=== PATIENT | female | born 1990 | race Caucasian/White ===

== ENCOUNTER 2016-07-09 02:50 | Emergency (ER) | payer OTHER ==
[2016-07-09 03:09] VITALS: BP 124/71; PULSE 76; TEMP 98.2; BMI 32.2
[2016-07-09] MEDS ORDERED: FAMOTIDINE 20 MG/50 ML IVPB 50 ML IVPB ONE ×2 (03:18→04:00)
[2016-07-09 03:24] LABS: BASOPHIL 0.9 % (0-2.0); MCH 28.4 pg (25.7-33.7); MCHC 32.4 g/dl (32.0-36.0); MEAN CELL VOLUME 87.6 fl (80-96); MEAN PLT VOLUME 7.6 fl (7.5-11.1); NEUTROPHILS 69.7 % (42.8-82.8); PLATELET COUNT 380 K/MM3 (134-434); RDW 12.6 % (11.6-15.6); WHITE BLOOD COUNT 13.2 K/mm3 (4.0-10.0)
--- NOTE | 2016-07-09 03:25 | PDOC ---
History of Present Illness - General History Source: Patient Exam Limitations: No Limitations - History of Present Illness Initial Comments: 07/09/16 03:36 The patient is a 25 year old female with no significant past medical history who presents to the ED with diffuse lower abdominal pain 2 hours prior to arrival. Patient reports she was in her usual state of health prior to going to bed last night. She denies any changes to appetite and bowel movements. Patient reports around 1am she had a sudden onset of abdominal pain that she describes as collicky in nature and localized in the lower quadrants, more prominent on the left. Patient denies nausea, vomiting, and diarrhea. She states her pain is consistent to when she was diagnosed with cholecystitis. The patient denies fever, chills, cough, SOB, chest pain, and palpitations. The patient denies dysuria, hematuria, urgency, and frequency. Allergies: NKDA Social History: No alcohol, tobacco, or drug use reported. Past Surgical History: cholecystectomy PCP: Dr. Annie Berger <Shea Medina - Last Filed: 07/09/16 03:36> - General History Source: Patient <DouglasSeven olivarez - Last Filed: 07/09/16 05:43> - General Chief Complaint: Pain, Acute Stated Complaint: ABD PAIN Time Seen by Provider: 07/09/16 03:25 Past History <Shea Medina - Last Filed: 07/09/16 03:36> - Past Medical History Anemia: No Asthma: No Cancer: No Cardiac Disorders: No CVA: No COPD: No CHF: No Dementia: No Diabetes: No GI Disorders: No Disorders: No HTN: No Hypercholesterolemia: No Liver Disease: No Seizures: No Thyroid Disease: No - Surgical History Abdominal Surgery: No Appendectomy: No Cardiac Surgery: No Cholecystectomy: No Lung Surgery: No Neurologic Surgery: No Orthopedic Surgery: No - Psycho/Social/Smoking Cessation Hx Suicidal Ideation: No Smoking Status: No Smoking History: Never smoked Have you smoked in the past 12 months: No Number of Cigarettes Smoked Daily: 0 Information on smoking cessation initiated: No Hx Alcohol Use: No Drug/Substance Use Hx: No Hx Substance Use Treatment: No <Seven Matias - Last Filed: 07/09/16 05:43> - Past Medical History Allergies/Adverse Reactions: Allergies Allergy/AdvReac Type Severity Reaction Status Date / Time No Known Drug Allergies Allergy Verified 07/09/16 03:08 Home Medications: Ambulatory Orders Ferrous Gluconate [Iron] 256 mg PO DAILY 06/27/15 Vit/Iron Fumarate/FA [ Tablet] 1 each PO DAILY 06/27/15 Ibuprofen [Motrin] 600 mg PO TID #30 tablet 07/09/16 Sulfamethoxazole/Trimethoprim [Bactrim *Ds*] 1 tab PO BID #14 tablet 07/09/16 Review of Systems - Review of Systems Able to Perform ROS?: Yes Comments:: 07/09/16 03:36 CONSTITUTIONAL: Absent: fever, no chills, no fatigue EYES: Absent: visual changes ENT: Absent: ear pain, no sore throat CARDIOVASCULAR: Absent: chest pain, no palpitations RESPIRATORY: Absent: cough, no SOB GI: +diffuse lower abdominal pain Absent: no nausea, no vomiting, no constipation, no diarrhea GENITOURINARY: Absent: dysuria, no frequency, no hematuria MUSKULOSKELETAL: Absent: back pain, no arthralgia, no myalgia SKIN: Absent: rash NEURO: Absent: headache <Shea Medina - Last Filed: 07/09/16 03:36> *Physical Exam - Vital Signs Last Vital Signs Temp Pulse Resp BP Pulse Ox 98.2 F 76 20 124/71 99 07/09/16 03:08 07/09/16 03:08 07/09/16 03:08 07/09/16 03:08 07/09/16 03:08 - Physical Exam Comments: 07/09/16 03:37 GENERAL: Well-appearing, well-nourished. Moderate distress. HEENT: Normocephalic, atraumatic. PERRL, EOM intact. CARDIOVASCULAR: Normal S1, S2. Regular rate and rhythm. PULMONARY: Clear to auscultation bilaterally. ABDOMEN: Soft, non-distended, Mildly tenderness on palpation throughout the entire abdomen, more on lower quadrants. No rebound or guarding. EXTREMITIES: Normal ROM in all four extremities. No gross deformities. SKIN: Warm, dry. No rash NEUROLOGICAL: No focal neurological deficits. <Shea Medina - Last Filed: 07/09/16 03:36> - Vital Signs Last Vital Signs Temp Pulse Resp BP Pulse Ox 98.2 F 76 20 124/71 99 07/09/16 03:08 07/09/16 03:08 07/09/16 03:08 07/09/16 03:08 07/09/16 03:08 <Seven Matias - Last Filed: 07/09/16 05:43> ED Treatment Course - LABORATORY CBC & Chemistry Diagram: 07/09/16 03:07 07/09/16 03:07 - ADDITIONAL ORDERS Additional order review: Laboratory Results 07/09/16 03:12 Urine Color Yellow Urine Appearance Slcloudy Urine pH 6.0 Ur Specific Pruden 1.026 Urine Protein Negative Urine Glucose (UA) Negative Urine Ketones Negative Urine Blood 2+ H Urine Nitrite Negative Urine Bilirubin Negative Urine Urobilinogen Negative Ur Leukocyte Esterase 1+ H 07/09/16 03:07 RBC 4.69 MCV 87.6 MCHC 32.4 RDW 12.6 D MPV 7.6 D Neutrophils % 69.7 Lymphocytes % 21.7 D Monocytes % 5.7 Eosinophils % 2.0 Basophils % 0.9 <Shea Medina - Last Filed: 07/09/16 03:36> - LABORATORY CBC & Chemistry Diagram: 07/09/16 03:07 07/09/16 03:07 <Seven Matias - Last Filed: 07/09/16 05:43> Medical Decision Making - Medical Decision Making 07/09/16 05:43 Dr. Matias: The scribe's documentation has been prepared under my direction and personally reviewed by me in its entirery. I confirm that the note above accurately reflects all work, treatment, procedures, and medical decision making performed by me. <Seven Matias - Last Filed: 07/09/16 05:43> *DC/Admit/Observation/Transfer - Attestations Scribe Attestion: 07/09/16 03:37 Documentation prepared by Shea Medina, acting as certified medical aide for Seven Matias MD <Shea Medina - Last Filed: 07/09/16 03:36> - Discharge Dispostion Admit: No <Seven Matias - Last Filed: 07/09/16 05:43> Diagnosis at time of Disposition: Abdominal pain Qualifiers: Abdominal location: lower abdomen, unspecified Qualified Code(s): R10.30 - Lower abdominal pain, unspecified UTI (urinary tract infection) Qualifiers: Urinary tract infection type: site unspecified Hematuria presence: without hematuria Qualified Code(s): N39.0 - Urinary tract infection, site not specified - Discharge Dispostion Disposition: HOME Condition at time of disposition: Stable - Referrals Referrals: Annie Berger [Primary Care Provider] - - Patient Instructions Printed Discharge Instructions: DI for Urinary Tract Infection (UTI), DI for Abdominal Pain-Adult
[2016-07-09 03:27] LABS: URINE APPEARANCE SLCLOUDY; URINE BILIRUBIN NEGATIVE (NEGATIVE); URINE COLOR YELLOW; URINE GLUCOSE (UA) NEGATIVE (NEGATIVE); URINE KETONE NEGATIVE (NEGATIVE); URINE NITRITE NEGATIVE (NEGATIVE); URINE PROTEIN NEGATIVE (NEGATIVE); URINE UROBILINOGEN NEGATIVE E.U./dl (0.2-1.0)
[2016-07-09 03:35] LABS: URINE BLOOD 2+ (NEGATIVE); URINE LEUK ESTERASE 1+ (NEGATIVE)
[2016-07-09 03:37] LABS: URINE BACTERIA MANY /hpf (NONE SEEN); URINE RBC 7 /hpf (0-3); URINE WBC 15 /hpf (3-5)
[2016-07-09 03:47] LABS: ALBUMIN 4.1 g/dl (3.4-5.0); ALK PHOS 74 U/L (45-117); ANION GAP 11 (8-16); BILIRUBIN,TOTAL 0.2 mg/dL (0.2-1.0); CALCIUM 8.5 mg/dL (8.5-10.1); CO2 27 mmol/L (21-32); CREATININE 0.6 mg/dL (0.55-1.02); GLUCOSE,RANDOM 113 mg/dL (74-106); SGPT/ALT 23 U/L (12-78); TOT PROT 7.6 g/dl (6.4-8.2)
[2016-07-09] MEDS ORDERED: KETOROLAC TROMETHAMINE 30 MG/1 ML VIAL ONE (03:51)
[2016-07-09 03:56] LABS: SGOT/AST 16 U/L (15-37)
[2016-07-09] MEDS ORDERED: KETOROLAC TROMETHAMINE 30 MG/1 ML VIAL IVPUSH ONE (04:01)
[2016-07-09] MEDS ORDERED: CEFTRIAXONE 50 ML ONE (04:31)
== END 2016-07-09 06:05 | disposition home or self-care (01) ==
LOC: JER 02:50
PROC: 3E03329 Introduction of Other Anti-infective into Peripheral Vein, Percutaneous Approach (ICD-10-PCS; principal; 2016-07-09)
PROC: 3E0337Z Introduction of Electrolytic and Water Balance Substance into Peripheral Vein, Percutaneous Approach (ICD-10-PCS; 2016-07-09)
PROC: 3E033GC Introduction of Other Therapeutic Substance into Peripheral Vein, Percutaneous Approach (ICD-10-PCS; 2016-07-09)
DX: N39.0 Urinary tract infection, site not specified (principal); R10.30 Lower abdominal pain, unspecified
CPT/HCPCS: 36415; 80053; 81003; 81015; 84703; 85025; 96361; 96365; 96375; 99281-25

== ENCOUNTER 2019-09-10 23:06 | Emergency (ER) | payer OTHER ==
[2019-09-10 23:27] VITALS: BP 118/63; PULSE 76; TEMP 97.5; BMI 37.0
--- NOTE | 2019-09-10 23:37 | PDOC ---
History of Present Illness - General Chief Complaint: Blurry Vision Stated Complaint: BLURRY VISION/RT EYE Time Seen by Provider: 09/10/19 23:36 Past History - Past Medical History Allergies/Adverse Reactions: Allergies Allergy/AdvReac Type Severity Reaction Status Date / Time No Known Drug Allergies Allergy Verified 09/10/19 23:25 Home Medications: Ambulatory Orders Ferrous Gluconate [Iron] 256 mg PO DAILY 06/27/15 Vit/Iron Fumarate/FA [ Tablet] 1 each PO DAILY 06/27/15 Ibuprofen [Motrin] 600 mg PO TID #30 tablet 07/09/16 Sulfamethoxazole/Trimethoprim [Bactrim *Ds*] 1 tab PO BID #14 tablet 07/09/16 Sumatriptan Succinate [Imitrex -] 50 mg PO DAILY PRN #10 tablet 09/11/19 Sumatriptan Succinate [Imitrex -] 50 mg PO ONCE PRN #10 tablet 09/11/19 Anemia: No Asthma: No Cancer: No Cardiac Disorders: No CVA: No COPD: No CHF: No Dementia: No Diabetes: No GI Disorders: No Disorders: No HTN: No Hypercholesterolemia: No Liver Disease: No Seizures: No Thyroid Disease: No - Surgical History Abdominal Surgery: No Appendectomy: No Cardiac Surgery: No Cholecystectomy: No Lung Surgery: No Neurologic Surgery: No Orthopedic Surgery: No - Psycho Social/Smoking Cessation Hx Smoking Status: No Smoking History: Never smoked Have you smoked in the past 12 months: No Number of Cigarettes Smoked Daily: 0 Information on smoking cessation initiated: No Hx Alcohol Use: No Drug/Substance Use Hx: No Hx Substance Use Treatment: No *Physical Exam - Vital Signs Last Vital Signs Temp Pulse Resp BP Pulse Ox 97.5 F L 76 20 118/63 99 09/10/19 23:25 09/10/19 23:25 09/10/19 23:25 09/10/19 23:25 09/10/19 23:25 09/11/19 00:24 29 y/o female PMH migraines c/o AVENDAÑO and blurry vision. The AVENDAÑO have occurred daily for most of her adult life. Was dx with migraine in [place] ([place] and takes qd otc Motrin. She has come to the ED bc she is experiencing NEW RIGHT eye pain with blurriness. The AVENDAÑO is located bitemporally, is generally 6 to 8 over 10 (AVENDAÑO constant and pt believes this is her baseline), aching in character, non-radiating, better with Motrin, and worsened by noise, but not light sensitive. She reports isolated episode of trauma to LEFT glabella in which she bumped her head on a cabinet while cleaning at home. The eye pain is located on the RIGHT eye in the upper, outer quadrant. She says it started suddenly today. She denies working outside or possible experiences where an FB could have entered her eye. She denies recent itchiness, allergies, or need to rub eye. She has not changed home cleaning products, sheets, or new clothes. No one at home is experiencing these symptoms. She does not take OCPs; IUD in place. She denies contact lens or corrective lens use. She has not seen an harness brusher. Denies FNVD, chills, and constipation No new meds/herbs, drugs/supplements No recent illness, sick contacts, or recent travel No LOC, tongue biting, tremor, aura Fam hx: Mother DM, father DM Surg hx: cholecystectomy (2013) Social hx: Denies smoking, etoh, recreational drug use. Does not exercise. Eats 1 large meals a day by choice. 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 Sexual hx: Currently sexually active with . Denies h/o STI. 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 LMP Jun 2019. IUD currently in place. She reports that she always has irregular menses. REVIEW OF SYSTEMS CONSTITUTIONAL: Absent: fever, chills, diaphoresis, generalized weakness, malaise, loss of appetite, weight change HEENT: Absent: rhinorrhea, nasal congestion, throat pain, throat swelling, difficulty swallowing, mouth swelling, ear pain, eye pain, visual changes CARDIOVASCULAR: Absent: chest pain, syncope, palpitations, irregular heart rate, lightheadedness, peripheral edema RESPIRATORY: Absent: cough, shortness of breath, dyspnea with exertion, orthopnea, wheezing, stridor, hemoptysis GASTROINTESTINAL: Absent: abdominal pain, abdominal distension, nausea, vomiting, diarrhea, constipation, melena, hematochezia GENITOURINARY: Absent: dysuria, frequency, urgency, hesitancy, hematuria, flank pain, genital pain MUSCULOSKELETAL: Absent: myalgia, arthralgia, joint swelling, back pain, neck pain SKIN: Absent: rash, itching, pallor HEMATOLOGIC/IMMUNOLOGIC: Absent: easy bleeding, easy bruising, lymphadenopathy, frequent infections ENDOCRINE: Absent: unexplained weight gain, unexplained weight loss, heat intolerance, cold intolerance NEUROLOGIC: Absent: headache, focal weakness or paresthesias, dizziness, unsteady gait, seizure, mental status changes, bladder or bowel incontinence PSYCHIATRIC: Absent: anxiety, depression, suicidal or homicidal ideation, hallucinations. GENERAL: AO x3 NAD HEAD: NCAT >EYES: JOSE ALBERTO, EOMI, sclera anicteric, conjunctival injection BL but greater on RIGHT lateral region. TTP on RIGHT eye. No ptosis. ENT: Ears normal, nares patent, oropharynx clear without exudates, moist mucous membranes. NECK: Trachea midline, full range of motion, supple. LUNGS: CTAB , no wheezes, no crackles, no accessory muscle use. HEART: RRR, S1, S2 without murmur, rub or gallop. ABDOMEN: Obese, soft, nontender, nondistended, normoactive bowel sounds, no guarding, no rebound, no hepatosplenomegaly, no masses. EXTREMITIES: 2+ pulses, warm, well-perfused, no edema. > NEUROLOGICAL: No paravertebral tenderness. LEFT eye 1s frequency nysthagmus with LEFT lateral abduction, which evokes dizziness. Cranial nerves II through XII grossly intact. Strength 5/5 in UE and LE in both distal and proximal f lexors. Brachial reflex 2+ BL. Patellar reflex 2+ BL. No dysdiadochokinesia. FTN NEG. Normal speech. Normal gait with appropriate strike phase, swing phase, and circumambulation PSYCH: Normal mood, normal affect. SKIN: Warm, dry, normal turgor, no rashes or lesions noted # migraine VS conjunctivitis VS TIA VS CVA - CBC, CMP, UA, U cx - Serum test and if NEG CT head - NS 1 L bolus - Reglan, acetominophen - Imitrex 09/11/19 02:00 CT head with no acute changes. Pt reports symptomatic relief s/p Imitrex. Will dc home with Imitrex and referral to neurology. ED Treatment Course - LABORATORY CBC & Chemistry Diagram: 09/11/19 00:49 09/11/19 01:48 Discharge - Discharge Information Problems reviewed: Yes Clinical Impression/Diagnosis: Migraine Qualifiers: Migraine type: unspecified Status migrainosus presence: without status migrainosus Intractability: not intractable Qualified Code(s): G43.909 - Migraine, unspecified, not intractable, without status migrainosus Condition: Improved Disposition: HOME - Admission No - Additional Discharge Information Plan of Treatment: YOUR VISIT You came to the hospital because you were experiencing headache and eye pain. You were seen in the emergency department for care of these symptoms. You were found to have migraine and received treatment for this. You are now stable and may return home. MEDICATIONS Please continue to take your home medications as prescribed. NEW MEDICATION - Sumatriptan 50 mg by mouth once a day IF you have migraine headache ADDITIONAL CARE Please make an appointment to see your primary care provider, 1 week from today. You should make an appointment to see: - neurology - ophthalmology Referrals to these doctors have been provided/attached. ADDITIONAL INFORMATION Please call 911 or come directly to the emergency department if you experience recurrence of the symptoms that brought you to the hospital, unusual headache, vision change, shortness of breath, chest pain, numbness, tingling, loss of alertness/awareness, loss of function, unusual bleeding or any alarming symptoms. Prescriptions: Sumatriptan Succinate [Imitrex -] 50 mg PO DAILY PRN #10 tablet PRN Reason: Headache Sumatriptan Succinate [Imitrex -] 50 mg PO ONCE PRN #10 tablet PRN Reason: Headache - Follow up/Referral Referrals: Stephanie Pham MD [Primary Care Provider] - Nacho Vasquez MD [Non Staff, Medical] - Kailash Ochoa DO [Staff Physician] - - Patient Discharge Instructions - Post Discharge Activity
--- NOTE | 2019-09-11 00:08 | PDOC ---
Attending Attestation - Resident Resident Name: Fadi Reilly - ED Attending Attestation I have performed the following: I have examined & evaluated the patient, The case was reviewed & discussed with the resident, I agree w/resident's findings & plan - HPI HPI: 09/11/19 00:55 Pt comes with right lateral eye pain and redness; pt has a migraine AVENDAÑO. She has no visionb change She has no fever no head trauma she has a hx of headaches. Pt has not been sleeping well. She is , she has a 4,6,10,13 yo kids. - Physicial Exam PE: 09/11/19 00:56 Agree with resident exam - Medical Decision Making 09/11/19 01:46 Patient Name: MARSHALL TORIBIO THIS IS A PRELIMINARY REPORT FROM [facility] DATE OF SERVICE: 2019-09-11 00:56:00 IMAGES: 232 EXAM: HEAD CT WITHOUT CONTRAST HISTORY: 29-Year-Old Female Headache Right Eye Pain. COMPARISON: None. FINDINGS: No acute intracranial hemorrhage mass effect or midline shift. Leach-white differentiation is maintained. Ventricles sulci and basilar cisterns appear unremarkable. Calvarium is intact. The sinuses and mastoid air cells are clear. IMPRESSION No acute intracranial hemorrhage mass effect or midline shift. 09/11/19 03:44 CT head normal labs pedning Pt is resting comfortably 09/11/19 04:05 Pt understands that she could have pseudotumor cerebri and that she could go blind with the potential increased pressure in her brain. She needs to follow with ophtho and with neurologist/interventionalist to oerform LP and evaluate optic nerves. I offered LP to the patient today; she is refusing the LP. 09/11/19 04:10 Pt is stable to go. She feels better
[2019-09-11] MEDS ORDERED: METOCLOPRAMIDE HCL INJECTION 10 MG/2 ML VIAL IVPUSH ONE (00:23)
[2019-09-11] MEDS ORDERED: ACETAMINOPHEN 325 MG TABLET (FP) PO ONE (00:23)
[2019-09-11] MEDS ORDERED: SODIUM CHLORIDE 1,000 ML IV STA (00:23)
[2019-09-11] MEDS ORDERED: SUMATRIPTAN SUCCINATE 6 MG/0.5 ML VIAL SQ ONE (00:24)
[2019-09-11] MEDS ORDERED: METOCLOPRAMIDE HCL INJECTION 10 MG/2 ML VIAL ONE (00:33)
[2019-09-11] MEDS ORDERED: ACETAMINOPHEN 325 MG TABLET (FP) ONE ×2 (00:33→00:53)
[2019-09-11] MEDS ORDERED: SUMATRIPTAN SUCCINATE 6 MG/0.5 ML VIAL ONE (00:34)
[2019-09-11 03:19] LABS: BASO % 0.7 % (0-2.0); EOS % 3.5 % (0-4.5); HEMOGLOBIN 13.5 GM/dL (10.7-15.3); LYMPH % 27.3 % (8-40); MCHC 34.7 g/dl (32.0-36.0); MEAN CELL VOLUME 89.4 fl (80-96); MEAN PLT VOLUME 7.7 fl (7.5-11.1); MONO % 4.6 % (3.8-10.2); NEUT % 63.9 % (42.8-82.8); PLATELET COUNT 383 K/MM3 (134-434); RBC 4.37 M/mm3 (3.60-5.2); RDW 12.4 % (11.6-15.6); WHITE BLOOD COUNT 10.7 K/mm3 (4.0-10.0)
[2019-09-11 03:48] LABS: ALBUMIN 3.9 g/dl (3.4-5.0); BILIRUBIN,TOTAL 0.8 mg/dL (0.2-1); BLOOD UREA NITROGEN 18.2 mg/dL (7-18); CALCIUM 8.5 mg/dL (8.5-10.1); CREATININE 0.8 mg/dL (0.55-1.3); POTASSIUM 3.6 mmol/L (3.5-5.1); TOT PROT 7.9 g/dl (6.4-8.2)
== END 2019-09-11 04:13 | disposition home or self-care (01) ==
LOC: JER 23:06
PROC: 3E023GC Introduction of Other Therapeutic Substance into Muscle, Percutaneous Approach (ICD-10-PCS; principal; 2019-09-10)
PROC: 3E033GC Introduction of Other Therapeutic Substance into Peripheral Vein, Percutaneous Approach (ICD-10-PCS; 2019-09-10)
DX: G43.909 Migraine, unspecified, not intractable, without status migrainosus (principal)
CPT/HCPCS: 36415; 70450-TC; 80053; 84703; 85025; 99285-25; J7030

== ENCOUNTER 2020-06-28 17:32 | Emergency (ER) | payer OTHER ==
[2020-06-28 17:42] VITALS: TEMP 98.1; BMI 37.0
[2020-06-28] MEDS ORDERED: FAMOTIDINE 20 MG/50 ML IVPB 20 MG/50 ML MG IVPB ONE ×2 (18:34→18:35)
[2020-06-28] MEDS ORDERED: LACTATED RINGERS SOLUTION 1000 ML INFUS.BAG IV ONE (18:35)
[2020-06-28 18:45] LABS: BASO % 0.9 % (0-2.0); EOS % 3.3 % (0-4.5); HEMATOCRIT 39.3 % (32.4-45.2); HEMOGLOBIN 13.3 GM/dL (10.7-15.3); LYMPH % 23.2 % (8-40); MCHC 33.8 g/dl (32.0-36.0); MEAN CELL VOLUME 88.8 fl (80-96); MEAN PLT VOLUME 7.6 fl (7.5-11.1); MONO % 5.5 % (3.8-10.2); NEUT % 67.1 % (42.8-82.8); PLATELET COUNT 447 K/MM3 (134-434); RBC 4.43 M/mm3 (3.60-5.2); RDW 12.9 % (11.6-15.6); WHITE BLOOD COUNT 10.2 K/mm3 (4.0-10.0)
[2020-06-28 18:46] LABS: HCG,QUALITATIVE URINE Negative
[2020-06-28 18:48] LABS: EPI CELLS 20 /uL (0-25.1); HYALINE CASTS 2 /uL (0-3.1); URINE APPEARANCE CLOUDY; URINE BACTERIA 2182 /uL (0-1359); URINE BILIRUBIN NEGATIVE (NEGATIVE); URINE COLOR YELLOW; URINE GLUCOSE (UA) NEGATIVE (NEGATIVE); URINE KETONE NEGATIVE (NEGATIVE); URINE LEUK ESTERASE 2+ (NEGATIVE); URINE NITRITE NEGATIVE (NEGATIVE); URINE PROTEIN NEGATIVE (NEGATIVE); URINE UROBILINOGEN 0.2 mg/dL (0.2-1.0); URINE WBC 138 /uL (0-25.8)
[2020-06-28 19:06] LABS: ALBUMIN 4.1 g/dl (3.4-5.0); BLOOD UREA NITROGEN 9.2 mg/dL (7-18); CALCIUM 9.3 mg/dL (8.5-10.1)
[2020-06-28 19:09] LABS: CREATININE 0.8 mg/dL (0.55-1.3)
[2020-06-28 19:11] LABS: BILIRUBIN,TOTAL 0.3 mg/dL (0.2-1); TOT PROT 8.6 g/dl (6.4-8.2)
[2020-06-28 19:15] LABS: URINE RBC 133.8 /uL (0-23.9)
[2020-06-28 20:19] LABS: POTASSIUM 3.9 mmol/L (3.5-5.1)
[2020-06-28 20:21] LABS: CALCIUM 9.1 mg/dL (8.5-10.1)
[2020-06-28 20:22] LABS: ALBUMIN 3.9 g/dl (3.4-5.0)
[2020-06-28 20:25] LABS: CREATININE 0.7 mg/dL (0.55-1.3)
[2020-06-28 20:26] LABS: BILIRUBIN,TOTAL 0.2 mg/dL (0.2-1)
[2020-06-28 20:27] LABS: TOT PROT 7.3 g/dl (6.4-8.2)
[2020-06-28] MEDS ORDERED: CIPROFLOXACIN 500 MG TABLET (RESTRICTED TO ID) PO ONE (20:28)
[2020-06-28 21:11] VITALS: BP 121/80; PULSE 89
== END 2020-06-28 21:20 | disposition home or self-care (01) ==
LOC: JER 17:32
PROC: 3E033GC Introduction of Other Therapeutic Substance into Peripheral Vein, Percutaneous Approach (ICD-10-PCS; principal; 2020-06-28)
DX: K52.9 Noninfective gastroenteritis and colitis, unspecified (principal); N39.0 Urinary tract infection, site not specified
CPT/HCPCS: 36415; 74177-TC; 80053; 81003; 83690; 84703; 85025; 99285-25; Q9967

== ENCOUNTER 2023-01-04 11:07 | Emergency (ER) | payer OTHER ==
[2023-01-04 11:20] VITALS: BP 107/61; PULSE 69; RESP 18; TEMP 98.4; BMI 37.0
== END 2023-01-04 11:56 | disposition home or self-care (01) ==
LOC: JER 11:07 → JERFT 11:07
DX: H92.03 Otalgia, bilateral (principal); H60.393 Other infective otitis externa, bilateral
CPT/HCPCS: 99283-25

== ENCOUNTER 2023-02-27 10:44 | Emergency (ER) | payer OTHER ==
[2023-02-27 10:50] VITALS: BMI 36.6
[2023-02-27] MEDS ORDERED: FAMOTIDINE 20 MG/50 ML IVPB 20 MG/50 ML MG IVPB ONE ×2 (12:10→12:21)
[2023-02-27] MEDS ORDERED: MAG HYDROX/AL HYDROX/SIMETH 30 ML UNIT-DOSE CUP PO ONE (12:11)
[2023-02-27] MEDS ORDERED: MAG HYDROX/AL HYDROX/SIMETH 30 ML UNIT-DOSE CUP ONE (12:21)
[2023-02-27 13:02] LABS: BASO % 0.6 % (0-2.0); EOS % 3.8 % (0-4.5); HEMATOCRIT 40.8 % (32.4-45.2); HEMOGLOBIN 13.4 GM/dL (10.7-15.3); LYMPH % 31.7 % (8-40); MCH 29.4 pg (25.7-33.7); MCHC 32.8 g/dl (32.0-36.0); MEAN CELL VOLUME 89.6 fl (80-96); MEAN PLT VOLUME 7.4 fl (7.5-11.1); MONO % 5.9 % (3.8-10.2); PLATELET COUNT 369 10^3/uL (134-434); RBC 4.55 M/mm3 (3.60-5.2); RDW 12.6 % (11.6-15.6); WHITE BLOOD COUNT 7.3 K/mm3 (4.0-10.0)
[2023-02-27 13:29] LABS: POTASSIUM 4.4 mmol/L (3.5-5.1)
[2023-02-27 13:30] LABS: CALCIUM 9.2 mg/dL (8.5-10.1)
[2023-02-27 13:32] LABS: BLOOD UREA NITROGEN 9.5 mg/dL (7-18)
[2023-02-27 13:34] LABS: CREATININE 0.6 mg/dL (0.55-1.3)
[2023-02-27] MEDS ORDERED: KETOROLAC TROMETHAMINE 30 MG/1 ML VIAL IVPB ONE (13:47)
[2023-02-27] MEDS ORDERED: KETOROLAC TROMETHAMINE 30 MG/1 ML VIAL ONE (14:41)
[2023-02-27 16:17] VITALS: BP 113/71; PULSE 57; RESP 20; TEMP 98.5
== END 2023-02-27 16:30 | disposition home or self-care (01) ==
LOC: JER 10:44
PROC: 3E033GC Introduction of Other Therapeutic Substance into Peripheral Vein, Percutaneous Approach (ICD-10-PCS; principal; 2023-02-27)
PROC: 3E033GC Introduction of Other Therapeutic Substance into Peripheral Vein, Percutaneous Approach (ICD-10-PCS; 2023-02-27)
DX: R07.89 Other chest pain (principal); R20.0 Anesthesia of skin
CPT/HCPCS: 36415; 71046-TC-FY; 80048; 83690; 84484; 84703; 85025; 93005; 93010; 99285-25